=== PATIENT | male | born 2005 | race Caucasian/White ===

== ENCOUNTER 2023-09-14 00:55 | Inpatient (IN) | payer OTHER ==
[~2023-09-14] VITALS: Ht 190.5 cm; Wt 111.6 kg
[2023-09-14 01:34] LABS: HEMATOCRIT 41.1 % (42.0-52.0); HEMOGLOBIN 13.8 g/dl (13.5-17.5); MEAN CORPUSCULAR HEMOGLOBIN 29.8 pg (27.0-33.0); MEAN CORPUSCULAR HGB CONC 33.6 g/dl (32.0-36.5); MEAN CORPUSCULAR VOLUME 88.8 fl (80.0-96.0); PLATELET COUNT, AUTOMATED 221 10^3/uL (150-450); RED BLOOD COUNT 4.63 10^6/uL (4.30-6.10); WHITE BLOOD COUNT 7.4 10^3/uL (4.0-10.0)
[2023-09-14 01:56] LABS: AMPHETAMINES LEVEL URINE NEGATIVE (NEGATIVE); BARBITURATES URINE NEGATIVE (NEGATIVE); BENZODIAZEPINES URINE NEGATIVE (NEGATIVE); CANNABINOIDS URINE NEGATIVE (NEGATIVE); COCAINE METABOLITE URINE NEGATIVE (NEGATIVE); METHADONE URINE NEGATIVE (NEGATIVE); OPIATES URINE NEGATIVE (NEGATIVE); PHENCYCLIDINE URINE NEGATIVE (NEGATIVE)
[2023-09-14 01:58] LABS: ETHYL ALCOHOL (ETHANOL) < 0.003 % (0.000-0.010)
[2023-09-14 02:00] LABS: ALKALINE PHOSPHATASE 73 U/L (46-116); ALT/SGPT 67 U/L (7.0-40); AST/SGOT 61 U/L (<34); BILIRUBIN,DIRECT 0.1 MG/DL (<0.4); BILIRUBIN,TOTAL 0.3 MG/DL (0.3-1.2); BLOOD UREA NITROGEN 23 MG/DL (9-23); CALCIUM LEVEL 8.9 MG/DL (8.5-10.1); CARBON DIOXIDE LEVEL 29 MMOL/L (20-31); CHLORIDE LEVEL 107 MMOL/L (98-107); CREATININE FOR GFR 1.09 MG/DL (0.70-1.30); GLUCOSE, FASTING 75 MG/DL (60-100); POTASSIUM SERUM 3.9 MMOL/L (3.5-5.1); SALICYLATE LEVEL 3.3 MG/DL (<30); SODIUM LEVEL 139 MMOL/L (136-145); TOTAL PROTEIN 6.5 G/DL (5.7-8.2)
[2023-09-14 02:02] LABS: THYROID STIMULATING HORMONE 2.744 uIU/ML (0.48-4.17)
[2023-09-14] MEDS ORDERED: MOM 30ML SUSPENSION UDC PO PRN (05:05)
[2023-09-14] MEDS ORDERED: diphenhydrAMINE 25MG CAP PO PRN (05:05)
[2023-09-14] MEDS ORDERED: ACETAMINOPHEN TAB 650MG DOSE (2X325MG) PO PRN (05:05)
[2023-09-14] MEDS ORDERED: IBUPROFEN 400MG TAB PO PRN (05:05)
[2023-09-14] MEDS ORDERED: MAALOX 30 ML SUSP *UDC PO PRN (05:05)
[2023-09-14] MEDS ORDERED: HOME MED LIST COMPLETE! XX SCH (06:00)
[2023-09-14 06:01] VITALS: BP 152/88; TEMP 97.6; O2SAT 97
[2023-09-14] MEDS: buPROPion **XL** TABLET 150MG (WELLBUTRIN XL) PO SCH (16:16)
[2023-09-15 06:00] VITALS: BP 113/53; TEMP 98.7; O2SAT 98
[2023-09-15 06:12] VITALS: BP 113/53; TEMP 98.7; O2SAT 98
[2023-09-15 14:43] VITALS: BP 114/53; TEMP 97.4; O2SAT 97
[2023-09-15] MEDS: traZODone 50 MG TAB PO PRN (21:40)
[2023-09-16] MEDS: guaiFENesin ER TABLET 600 MG TAB PO SCH (11:31)
[2023-09-16 18:30] VITALS: BP 132/59; TEMP 97.5; O2SAT 97
[2023-09-17 06:38] VITALS: BP 121/58; TEMP 97.4; O2SAT 99
[2023-09-17 16:26] VITALS: BP 140/65; TEMP 98; O2SAT 99
[2023-09-18 06:36] VITALS: BP 126/60; TEMP 98.8; O2SAT 98
[2023-09-18] MEDS ORDERED: MUCI600T31 PO (09:42)
[2023-09-18] MEDS ORDERED: TRAZ-252 PO (09:42)
[2023-09-18] MEDS ORDERED: BUPR150T12 PO (09:42)
== END 2023-09-18 12:27 | disposition home or self-care (01) | DRG 885 ==
LOC: M ED 00:55 → M ED INP 05:04 → M PSY 05:50
PROVIDERS: ADMIT Student in an Organized Health Care Education/Training Program; ATTEND Student in an Organized Health Care Education/Training Program
DX: F33.1 Major depressive disorder, recurrent, moderate (principal); R45.851 Suicidal ideations; G47.419 Narcolepsy without cataplexy

== ENCOUNTER 2024-02-28 18:34 | Emergency (ER) | payer OTHER ==
[~2024-02-28 18:34] MED LIST: BUPR150T12 PO; MUCI600T31 PO; TRAZ-252 PO
[2024-02-28 18:50] VITALS: BP 141/86; TEMP 97.8; O2SAT 98
[2024-02-28 19:48] LABS: HEMATOCRIT 45.9 % (42.0-52.0); HEMOGLOBIN 15.7 g/dl (13.5-17.5); MEAN CORPUSCULAR HGB CONC 34.2 g/dl (32.0-36.5); MEAN CORPUSCULAR VOLUME 90.7 fl (80.0-96.0); PLATELET COUNT, AUTOMATED 248 10^3/uL (150-450); RED BLOOD COUNT 5.06 10^6/uL (4.30-6.10); WHITE BLOOD COUNT 9.3 10^3/uL (4.0-10.0)
[2024-02-28 20:00] LABS: AMPHETAMINES LEVEL URINE NEGATIVE (NEGATIVE); BARBITURATES URINE NEGATIVE (NEGATIVE); BENZODIAZEPINES URINE NEGATIVE (NEGATIVE); CANNABINOIDS URINE NEGATIVE (NEGATIVE); COCAINE METABOLITE URINE NEGATIVE (NEGATIVE); METHADONE URINE NEGATIVE (NEGATIVE); OPIATES URINE NEGATIVE (NEGATIVE); PHENCYCLIDINE URINE NEGATIVE (NEGATIVE)
[2024-02-28 20:04] LABS: ALBUMIN 4.3 G/DL (3.2-5.2); ALKALINE PHOSPHATASE 55 U/L (46-116); ALT/SGPT 69 U/L (7.0-40); AST/SGOT 44 U/L (<34); BILIRUBIN,DIRECT 0.1 MG/DL (<0.4); BILIRUBIN,TOTAL 0.3 MG/DL (0.3-1.2); BLOOD UREA NITROGEN 17 MG/DL (9-23); CALCIUM LEVEL 9.1 MG/DL (8.5-10.1); CARBON DIOXIDE LEVEL 26 MMOL/L (20-31); CHLORIDE LEVEL 105 MMOL/L (98-107); GLUCOSE, FASTING 97 MG/DL (60-100); POTASSIUM SERUM 4.2 MMOL/L (3.5-5.1); SALICYLATE LEVEL < 3.0 MG/DL (<30); SODIUM LEVEL 135 MMOL/L (136-145)
[2024-02-28 20:06] LABS: ETHYL ALCOHOL (ETHANOL) < 0.003 % (0.000-0.010); THYROID STIMULATING HORMONE 2.139 uIU/ML (0.48-4.17)
== END 2024-02-28 21:52 | disposition home or self-care (01) ==
LOC: M ED 18:34 → EDBD 18:34 → M ED 21:52
DX: F43.0 Acute stress reaction (principal); F32.A Depression, unspecified; Z79.899 Other long term (current) drug therapy